=== PATIENT | female | born 1985 | race Caucasian/White ===

== ENCOUNTER 2017-07-31 13:22 | Emergency (ER) | payer MEDICAID ==
[~2017-07-31] VITALS: Ht 170.2 cm; Wt 67.0 kg
[~2017-07-31 13:22] MED LIST: GABA-826 PO; LISD20CA4 PO; TRAZ100T15 PO
[2017-07-31] MEDS ORDERED: SODIUM CHLORIDE 0.9% 1,000 ML IV ONE (13:33)
[2017-07-31] MEDS ORDERED: SODIUM CHLORIDE 0.9% 1,000ML IVBOLUS ONE (14:00)
[2017-07-31] MEDS ORDERED: SODIUM CHLORIDE FLUSH 10ML SYR IVF ONE (14:00)
[2017-07-31 14:21] LABS: HEMOGLOBIN 14.7 g/dL (11.7-16.4)
[2017-07-31 14:39] LABS: BLOOD UREA NITROGEN 11 mg/dL (7-18)
[2017-07-31 14:47] VITALS: BP 153/92
== END 2017-07-31 17:00 | disposition home or self-care (01) ==
LOC: ED 16:03
DX: F15.129 Other stimulant abuse with intoxication, unspecified (principal)
CPT/HCPCS: 36415; 80048; 82040; 85025; 93005; 96360; 96361; 99285; J7030

== ENCOUNTER 2017-09-06 16:23 | Emergency (ER) | payer MEDICAID ==
[~2017-09-06] VITALS: Ht 162.6 cm; Wt 63.6 kg
[2017-09-06 16:26] VITALS: BP 155/105
== END 2017-09-06 17:17 ==
LOC: ED 17:02
DX: Z53.21 Procedure and treatment not carried out due to patient leaving prior to being seen by health care provider (principal)

== ENCOUNTER 2018-02-19 08:36 | Emergency (ER) | payer MEDICAID ==
[~2018-02-19] VITALS: Ht 167.6 cm; Wt 64.0 kg
[2018-02-19] MEDS ORDERED: RISP1TAB3 PO (10:01)
[2018-02-19] MEDS ORDERED: MORPHINE SULFATE 4 MG/ML, 1ML ONE (10:29)
[2018-02-19 10:58] LABS: MEAN CORPUSCULAR HEMOGLOBIN 32.5 pg (27.0-34.8); MEAN CORPUSCULAR HGB CONC 34.4 g/dL (32.4-35.8); MEAN CORPUSCULAR VOLUME 94.5 fL (80-100); MEAN PLATELET VOLUME 8.6 fL (7.4-10.4); PLATELET COUNT 309 x10^3/uL (130-400); RED BLOOD COUNT 4.56 x10^6/uL (3.82-5.3); RED CELL DISTRIBUTION WIDTH 14.1 % (9.6-15.2)
[2018-02-19] MEDS ORDERED: SODIUM CHLORIDE FLUSH 10ML SYR IVF ONE (11:00)
[2018-02-19] MEDS ORDERED: MORPHINE SULFATE 4 MG/ML, 1ML IV PRN (11:00)
[2018-02-19] MEDS ORDERED: SODIUM CHLORIDE 0.9% 1,000ML IVBOLUS ONE (11:00)
[2018-02-19] MEDS ORDERED: ONDANSETRON ODT 4 MG PO ONE (11:00)
[2018-02-19] MEDS ORDERED: AMPICILLIN/SULBACTAM 3 GM in SODIUM CHLORIDE 0.9% 100 ML IVPB ONE (11:00)
[2018-02-19 11:03] LABS: ALBUMIN 2.9 g/dL (3.4-5.0); ANION GAP 8 mmol/L (5-15); CALCIUM 8.4 mg/dL (8.5-10.1); CHLORIDE 105 mmol/L (98-107)
[2018-02-19 11:15] LABS: BASOPHILS # (AUTO) 0.05 x10^3/uL (0-0.1); BASOPHILS % (AUTO) 0 % (0-1); EOSINOPHILS # (AUTO) 0.28 x10^3/uL (0-0.4); EOSINOPHILS % (AUTO) 1 % (1-7); LYMPHOCYTES # (AUTO) 1.09 x10^3/uL (1-3.4); LYMPHOCYTES % (AUTO) 5 % (22-44); MD SCAN; MONOCYTES # (AUTO) 0.99 x10^3/uL (0.2-0.8); MONOCYTES % (AUTO) 5 % (2-9); NEUTROPHILS # (AUTO) 19.05 x10^3/uL (1.8-6.8); NEUTROPHILS % (AUTO) 89 % (42-75)
[2018-02-19 14:13] VITALS: BP 110/68
== END 2018-02-19 14:30 | disposition home or self-care (01) ==
LOC: ED 14:27
DX: S51.051A Open bite, right elbow, initial encounter (principal); S51.851A Open bite of right forearm, initial encounter; L03.113 Cellulitis of right upper limb; W54.0XXA Bitten by dog, initial encounter; Y93.89 Activity, other specified; Y92.410 Unspecified street and highway as the place of occurrence of the external cause; Y99.8 Other external cause status
CPT/HCPCS: 36415; 73090; 80048; 82040; 83605; 85025; 87040; 96365; 96375; 99285; J0295; J7030

== ENCOUNTER 2018-12-23 13:32 | Emergency (ER) | payer SELFPAY ==
[~2018-12-23] VITALS: Ht 167.6 cm; Wt 70.6 kg
[~2018-12-23 13:32] MED LIST changes: +RISP1TAB3 PO; +TRAZ-137 PO; -TRAZ100T15 PO
[2018-12-23 13:48] VITALS: BP 143/96
[2018-12-23] MEDS ORDERED: IBUPROFEN 200 MG TABLET ONE (14:38)
--- NOTE | 2018-12-23 14:54 | NUR ---
pt given dc instructions and script. pt a&o, resps even and unlabored, gait steady to dc. nadn at dc.
[2018-12-23] MEDS ORDERED: IBUPROFEN 200 MG TABLET PO ONE (15:00)
== END 2018-12-23 14:56 | disposition home or self-care (01) ==
LOC: ED 14:54
DX: K08.89 Other specified disorders of teeth and supporting structures (principal); Z72.9 Problem related to lifestyle, unspecified; Z91.14 Patient's other noncompliance with medication regimen; Z75.9 Unspecified problem related to medical facilities and other health care
CPT/HCPCS: 99283

== ENCOUNTER 2019-05-22 22:28 | Emergency (ER) | payer MEDICAID ==
[~2019-05-22] VITALS: Ht 167.6 cm; Wt 75.2 kg
[2019-05-22 23:33] VITALS: BP 134/95
== END 2019-05-23 00:22 | disposition home or self-care (01) ==
LOC: ED 23:38
DX: A09 Infectious gastroenteritis and colitis, unspecified (principal); R11.2 Nausea with vomiting, unspecified; K08.89 Other specified disorders of teeth and supporting structures; F15.129 Other stimulant abuse with intoxication, unspecified; F12.288 Cannabis dependence with other cannabis-induced disorder; I10 Essential (primary) hypertension; Z72.9 Problem related to lifestyle, unspecified
CPT/HCPCS: 36415; 80053; 80307; 81003; 81025; 83690; 85025; 96374; 96375; 99283; J2405; J2765

== ENCOUNTER 2019-11-01 23:42 | Emergency (ER) | payer MEDICAID ==
[~2019-11-01] VITALS: Ht 167.6 cm; Wt 74.9 kg
--- NOTE | 2019-11-02 03:01 | NUR ---
pt to room from lobby
--- NOTE | 2019-11-02 03:10 | NUR ---
First contact w/ pt. this rn asked pt about triage noted and pt not sure as to what she was trying to get for a medication. Pt denies any recent seizures and is neurologically fully intact. Asked this rn to turn off all the lights and give a warm blanket directly upon admittance to room.
[2019-11-02 03:18] VITALS: BP 139/88
== END 2019-11-02 03:55 | disposition home or self-care (01) ==
LOC: ED 11-02 03:45
DX: J04.0 Acute laryngitis (principal); B97.89 Other viral agents as the cause of diseases classified elsewhere; F17.200 Nicotine dependence, unspecified, uncomplicated; I10 Essential (primary) hypertension
CPT/HCPCS: 71046; 99283